=== PATIENT | male | born 1940 | race Two or more races ===

== ENCOUNTER 2017-04-12 09:10 | Emergency (ER) | payer MEDICARE ==
[2017-04-12 09:20] VITALS: BP 168/56
--- NOTE | 2017-04-12 09:56 | ER Document Report ---
ED Skin Rash/Insect Bite/Abscs - General Chief Complaint: Skin Problem Stated Complaint: SKIN PROBLEM Time Seen by Provider: 04/12/17 09:43 Mode of Arrival: Ambulatory Information source: Patient, Relative Notes: This 77-year-old male who normally lives in [place] comes emergency room with his daughter for a left arm rash. He was diagnosed with shingles on . He was prescribed acyclovir, Neurontin, and Naprosyn. The acyclovir should have been finished today, at least half of the prescription remains in the bottle. Over the last few days he has developed a redness to the skin along the margins of the blistered areas of the left C6 dermatome region. There are no other symptoms reported. TRAVEL OUTSIDE OF THE [place] IN LAST 30 DAYS: No - Related Data Allergies/Adverse Reactions: No Known Allergies Allergy (Unverified 04/12/17 09:19) Past Medical History - General Information source: Patient, Relative - Social History Smoking Status: Unknown if Ever Smoked Cigarette use (# per day): No Chew tobacco use (# tins/day): No Smoking Education Provided: No Frequency of alcohol use: None Drug Abuse: None Occupation: Retired Lives with: Family Family History: Reviewed & Not Pertinent - Medical History Medical History: Negative - Past Medical History Cardiac Medical History: Reports: None Pulmonary Medical History: Reports: None Neurological Medical History: Reports: None Endocrine Medical History: Reports: None Renal/ Medical History: Reports: None Musculoskeltal Medical History: Reports Hx Arthritis Psychiatric Medical History: Reports: None Past Surgical History: Reports: Hx Cholecystectomy - Immunizations Hx Diphtheria, Pertussis, Tetanus Vaccination: No Review of Systems - Review of Systems Constitutional: No symptoms reported EENT: No symptoms reported Cardiovascular: No symptoms reported Respiratory: No symptoms reported Gastrointestinal: No symptoms reported Genitourinary: No symptoms reported Musculoskeletal: Joint pain - Chronic arthritic pain in the joints Skin: See HPI Hematologic/Lymphatic: No symptoms reported Neurological/Psychological: No symptoms reported Physical Exam - Vital signs Vitals: Temp Pulse Resp BP Pulse Ox 97.8 F 60 16 168/56 H 97 04/12/17 09:19 04/12/17 09:19 04/12/17 09:19 04/12/17 09:19 04/12/17 09:19 Interpretation: Normal - General General appearance: Appears well, Alert In distress: None - HEENT Head: Normocephalic, Atraumatic Eyes: Normal Pupils: PERRL Neck: Normal - Respiratory Respiratory status: No respiratory distress Breath sounds: Normal - Cardiovascular Rhythm: Regular Heart sounds: Normal auscultation Murmur: No - Abdominal Inspection: Normal - Back Back: Normal - Extremities General upper extremity: Other - The left upper lateral arm along the C6 distribution region has healing previously blistered skin. The margins in the upper part of the wound appear to be becoming infected with a warm erythematous cellulitis appearance to the intact skin. General lower extremity: Normal inspection - Neurological Neuro grossly intact: Yes - Psychological Associated symptoms: Normal affect, Normal mood Course - Vital Signs Vital signs: Temp Pulse Resp BP Pulse Ox 97.8 F 60 16 168/56 H 97 04/12/17 09:19 04/12/17 09:19 04/12/17 09:19 04/12/17 09:19 04/12/17 09:19 Discharge - Discharge Clinical Impression: Cellulitis Qualifiers: Site of cellulitis: extremity Site of cellulitis of extremity: upper extremity Laterality: left Qualified Code(s): L03.114 - Cellulitis of left upper limb Shingles rash Qualifiers: Herpes zoster complications: with other complications Qualified Code(s): B02.8 - Zoster with other complications Condition: Stable Disposition: HOME, SELF-CARE Additional Instructions: Cellulitis: You have an infection of your skin and underlying soft tissues called cellulitis. This is due to bacteria, which can enter through any break in the skin, or even through an irritated hair follicle. Untreated, cellulitis will usually worsen. Antibiotics are required. Usually, warm packs or warm soaks, and elevation of the infected area are recommended. You should start getting better within 24 to 36 hours. Most infections respond quickly to the right medication. Follow-up care is important, however, to check for abscess (boil) formation, unsuspected foreign body, or resistant infection. If you develop fever, chills, or if the area of infection is becoming rapidly more swollen or painful, call the doctor at once. TAKE THE DOXYCYCLINE ANTIBIOTIC PRESCRIBED. CONTINUE TAKING THE ACYCLOVIR. KEEP THE ARM WOUND CLEAN AND DRESSED USING NEOSPORIN OR BACITRACIN OINTMENT. FOLLOW UP WITH A LOCAL MEDICAL DOCTOR IF NOT IMPROVING. RETURN TO THE EMERGENCY ROOM IF ANY NEW OR WORSENING SYMPTOMS. Prescriptions: Doxycycline Hyclate 100 mg PO BID #14 tablet
== END 2017-04-12 10:05 | disposition home or self-care (01) ==
LOC: ER 09:10
DX: L03.114 Cellulitis of left upper limb (principal); B02.8 Zoster with other complications; R21 Rash and other nonspecific skin eruption; Z90.49 Acquired absence of other specified parts of digestive tract
CPT/HCPCS: 99283